=== PATIENT | male | born 1985 | race Caucasian/White ===

== ENCOUNTER 2018-11-10 06:09 | Emergency (ER) | payer OTHER ==
[2018-11-10] MEDS: CLINDAMYCIN 300 MG CAP PO (06:53)
[2018-11-10] MEDS: KETOROLAC 30 MG INJ IM (06:53)
[2018-11-10] MEDS: LIDOCAINE/MYLANTA 40 ML BTL PO (06:53)
[2018-11-10] MEDS ORDERED: CLINDAMYCIN 300 MG INJ IM (07:00)
[2018-11-10] MEDS: DEXAMETHASONE (1 MG/ML PO SYG) PO (07:03)
== END 2018-11-10 07:14 | disposition home or self-care (01) ==
LOC: FTE 06:09
DX: J02.9 Acute pharyngitis, unspecified (principal); F17.210 Nicotine dependence, cigarettes, uncomplicated
CPT/HCPCS: 96372; 99284-25